=== PATIENT | female | born 2000 | race Caucasian/White ===

== ENCOUNTER 2021-11-04 14:13 | Emergency (ER) | payer OTHER ==
[~2021-11-04] VITALS: Ht 177.8 cm; Wt 145.2 kg
[2021-11-04 14:23] VITALS: BP 151/80
[2021-11-04] MEDS ORDERED: SERTRALINE HCL100 MG PO (14:26)
== END 2021-11-04 21:30 | disposition left against medical advice (07) ==
LOC: M.ERS 14:13
DX: R51.9 Headache, unspecified (principal); Z53.21 Procedure and treatment not carried out due to patient leaving prior to being seen by health care provider